=== PATIENT | male | born 2000 | race Two or more races ===

== ENCOUNTER 2019-07-13 16:33 | Emergency (ER) | payer OTHER ==
--- NOTE | 2019-07-13 17:18 | ER Document Report ---
HPI - HPI Patient complains to provider of: thoracic back pain Time Seen by Provider: 07/13/19 17:03 Onset: Other - 1 year Quality of pain: Achy Severity: Moderate Pain Level: 3 Context: 19-year-old male presents emergency department with complaints of thoracic back pain that he is had for approximately 1 year this becoming increasingly worse. Reports he was just seen at [facility] May 29 had x-rays done they did not find anything. He reports pain is increasing. He does carry a heavy pack. Denies trauma. Denies numbness tingling. Denies other symptoms such as fever vomiting diarrhea. Denies past medical history of injury to his back. Patient reports he is having difficulty taking a deep breath complains of severe pain with deep breath that radiates up to his neck. 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 negative: Conjuctival Injection - NECK Neck: Normal Inspection, Supple. negative: Lymphadenopathy-Left, Lymphadenopathy-Right - RESPIRATORY Respiratory: Breath Sounds Normal, No Respiratory Distress, Chest Non-Tender - CARDIOVASCULAR Cardiovascular: Regular Rate, Regular Rhythm - GI/ABDOMEN Gastrointestinal: Abdomen Soft, Abdomen Non-Tender - BACK Back: Normal Inspection - No obvious deformity good distal movement and se nsation patient complains of tenderness to T5 vertebra no erythema no swelling no warmth. 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 Reports he has had x-rays without find anything wrong. Reports he is having increased trouble difficulty taking a deep breath because it causes him pain. CT ordered 07/13/19 19:30 CT was negative for any acute injury. Patient was instructed on this. Patient seems very troubled, wants to know what is wrong with his back. He was instructed on rest follow-up with his BAS tomorrow for recheck. He is instructed take Motrin for the pain. Patient has good distal movement and sensation no history of IV drug use. Denies fever vomiting. Low suspicion for any meningitis, fracture, expanding/ruptured AAA, cauda equina syndrome, epidural mass lesion/abscess, herniated disc causing severe spinal stenosis, or other systemic infection at this time. Patient is aware that this condition can change from initial presentation and that she needs monitor symptoms closely for any acute changes. Thoracic Spine CT 07/13/19 17:13 IMPRESSION: NORMAL CT OF THE THORACIC SPINE. - Vital Signs Vital signs: Temp Pulse Resp BP Pulse Ox 98.8 F 55 L 16 116/73 100 07/13/19 16:50 07/13/19 16:50 07/13/19 16:50 07/13/19 16:50 07/13/19 16:50 - Diagnostic Test Radiology reviewed: Reports reviewed Discharge - Discharge Clinical Impression: Thoracic back pain Qualifiers: Chronicity: acute Back pain laterality: midline Qualified Code(s): M54.6 - Pain in thoracic spine Condition: Stable Disposition: HOME, SELF-CARE Instructions: Use of Lffl-Hwz-Azmopck Ibuprofen ([facility]), Ice Packs ([facility]) Additional Instructions: *You have been evaluated for thoracic back pain The CT of your back did not find any acute injury *Take ibuprofen as indicated *Rest no heavy lifting *Follow up with your BAS tomorrow *Return to ED for worsening condition, changes, needs Forms: Return to Work
--- NOTE | 2019-07-13 17:58 | RADIOLOGY REPORT (SQ) ---
EXAM DESCRIPTION: CT THORACIC SPINE WITHOUT COMPLETED DATE/TIME: 07/13/2019 5:43 pm REASON FOR STUDY: pain difficulty breathing COMPARISON: None. TECHNIQUE: Axial images acquired through the thoracic spine without intravenous contrast. Images re viewed with lung, soft tissue and bone windows. Reconstructed coronal and sagittal MPR images review ed. Images stored on PACS. All CT scanners at this facility use dose modulation, iterative reconstruction, and/or weight based d osing when appropriate to reduce radiation dose to as low as reasonably achievable (ALARA). [facility]: Dose Right [facility]: CareDose [facility]: Dose Right [facility]: Teradose 4D [facility]: Smart cfgAdvance RADIATION DOSE: CT Rad equipment meets quality standard of care and radiation dose reduction techniq ues were employed. CTDIvol: 93.2 mGy. DLP: 3803 mGy-cm. mGy. LIMITATIONS: None. FINDINGS: VISUALIZED LUNGS: No acute opacities. No pneumothorax. SOFT TISSUES: No soft tissue swelling. No masses. VERTEBRAL BODIES: No fractures. No dislocation. No acute findings. DISCS: No significant disc space narrowing. ALIGNMENT: Normal. TRANSVERSE PROCESSES, POSTERIOR ELEMENTS: No fractures. No dislocation. No acute findings. HARDWARE: None in the spine. VISUALIZED RIBS: No fractures. OTHER: No other significant finding. IMPRESSION: NORMAL CT OF THE THORACIC SPINE. TECHNICAL DOCUMENTATION: JOB ID: [id number] Quality ID # [id number]: Final reports with documentation of one or more dose reduction techniques (e.g., Au tomated exposure control, adjustment of the mA and/or kV according to patient size, use of iterative reconstruction technique) 2010 [employer]- All Rights Reserved Reading location - IP/workstation name: [email or web address]
[2019-07-13 18:37] VITALS: BP 118/78
== END 2019-07-13 18:31 | disposition home or self-care (01) ==
LOC: ER 16:33
DX: M54.6 Pain in thoracic spine (principal); R07.1 Chest pain on breathing; F17.210 Nicotine dependence, cigarettes, uncomplicated
CPT/HCPCS: 72128; 99283